=== PATIENT | male | born 2000 | race Caucasian/White ===

== ENCOUNTER → 2022-03-07 | Outpatient (CLI) | payer OTHER ==
--- NOTE | 2022-03-08 03:01 | MR ---
EXAMINATION TYPE: MR foot RT wo con DATE OF EXAM: 03/07/2022 COMPARISON: None HISTORY: Osteomyelitis of great toe of right foot. Multiplanar multi echo imaging of the right foot performed with no contrast. The metatarsals are intact. The toes appear intact. The hindfoot appears intact. Achilles tendon appears normal. Plantar fascia appears normal. There is intact medial and lateral fle xor tendons of the foot. There is some increased fluid signal at the nailbed of the big toe. The bony structures are intact. No evidence of bone edema. No evidence of a fracture. IMPRESSION: No evidence of osteomyelitis. There is increased fluid signal at the nailbed of the big toe that coul d be localized inflammatory process.
== END | disposition home or self-care (01) ==
LOC: RADMRIMAIN 17:10
PROVIDERS: ATTEND Podiatrist Foot & Ankle Surgery
DX: M86.171 Other acute osteomyelitis, right ankle and foot (principal)

== ENCOUNTER 2023-10-03 10:34 | Emergency (ER) | payer OTHER ==
--- NOTE | 2023-10-03 11:06 | ED ---
Syncope HPI - General Chief Complaint: Headache Stated Complaint: Fall Time Seen by Provider: 10/03/23 10:47 Source: patient, family, RN notes reviewed Mode of arrival: ambulatory Limitations: no limitations - History of Present Illness Initial Comments: This is a 23-year-old male who presents to the emergency department for a syncopal episode. States that 2 days ago he got done mowing the lawn. He went inside and took a drink of Sprite. Afterwards he started to feel dizzy and lightheaded. He had a syncopal episode and fell to the ground. Before hitting the ground, he hit the left side of his head on a bookshelf. Family states that he was only unconscious for couple of seconds. He used a push mower but did not overexert himself. He mows the lawn frequently without any problems. He has never had a syncopal episode in the past. Since this event he continues to have a headache in the back and left side of his head. He also injured his left shoulder in the fall and continues to have pain to the left shoulder. This is not painful to move, but only to the touch. Family also states that he is slower to respond than normal and has been somewhat groggy since the fall. Denies any chest pain or shortness of breath. MD Complaint: loss of consciousness - Related Data Home Medications Medication Instructions Recorded Confirmed No Known Home Medications 10/03/23 10/03/23 Allergies Allergy/AdvReac Type Severity Reaction Status Date / Time No Known Allergies Allergy Verified 10/03/23 11:28 Review of Systems ROS Statement: Those systems with pertinent positive or pertinent negative responses have been documented in the HPI. ROS Other: All systems not noted in ROS Statement are negative. Past Medical History Past Medical History: Asthma, Thyroid Disorder Past Surgical History: Orthopedic Surgery Smoking Status: Former smoker Past Alcohol Use History: None Reported Past Drug Use History: None Reported General Exam Limitations: no limitations General appearance: alert, in no apparent distress Head exam: Present: atraumatic, normocephalic, normal inspection Eye exam: Present: normal appearance, PERRL, EOMI. Absent: scleral icterus, conjunctival injection, periorbital swelling Respiratory exam: Present: normal lung sounds bilaterally. Absent: respiratory distress, wheezes, rales, rhonchi, stridor Cardiovascular Exam: Present: regular rate, normal rhythm, normal heart sounds. Absent: systolic murmur, diastolic murmur, rubs, gallop, clicks Neurological exam: Present: alert, oriented X3, CN II-XII intact Psychiatric exam: Present: normal affect, normal mood Skin exam: Present: warm, dry, intact, normal color. Absent: rash Course Vital Signs 10/03/23 10/03/23 10/03/23 10:36 13:52 15:03 Temperature 97.4 F L Pulse Rate 75 70 Respiratory 20 18 Rate Blood Pressure 136/89 132/80 Blood Pressure 135/84 [Right Arm Sitting] Blood Pressure 130/84 [Right Arm Standing] Blood Pressure 136/85 [Right Arm Supine] O2 Sat by Pulse 98 98 Oximetry Medical Decision Making - Medical Decision Making This is a 23 year old male who presents to the emergency department for a syncopal episode. Was pt. sent in by a medical professional or institution? @ -No Did you speak to anyone other than the patient for history? @ -His mother provided the information about him being slower to respond and being unconscious for a couple of seconds. Did you review nursing and triage notes? @ -Yes, and I agree, it is accurate with regards to the patient's symptoms. Were old charts reviewed? @ -No Differential Diagnosis? @ -Differential Syncope: Valvular disease, hypertrophic cardiomyopathy, pulmonary embolism, tamponade, tachycardia, bradycardia, NV, hypovolemia, hemorrhage, dissection, anemia, intracranial hemorrhage, seizure, hypoglycemia, carbon monoxide poisoning, this is not meant to be an all-inclusive list. EKG interpreted by me (3pts min.)? @ -EKG interpreted by me demonstrating the following: Sinus rhythm. Ventricular rate 70 bpm, AZ interval 165 ms, QRS duration 102 ms, QTc 387 ms. X-rays interpreted by me (1pt min.)? @ -Chest x-ray obtained, my interpretation identifies no localized consolidations or infiltrates. X-ray of the left shoulder obtained. My interpretation identifies no acute fractures. CT interpreted by me (1pt min.)? @ -CT scan of the brain obtained. My interpretation identifies no evidence of an acute intracranial hemorrhage. U/S interpreted by me (1pt. min.)? @ -Not obtained What testing was considered but not performed? (CT, X-rays, U/S, labs)? Why? @ -None What meds were considered but not given? Why? @ -None Did you discuss the management of the patient with other professionals? @ -No Did you reconcile home meds? @ -No Was smoking cessation discussed for >3mins.? @ -No Was critical care preformed (if so, how long)? @ -No Were there social determinants of health that impacted care today? How? (Homelessness, low income, unemployed, alcoholism, drug addiction, tr ansportation, low edu. Level, literacy, decrease access to med. care, half-way, rehab)? @ -No Was there de-escalation of care discussed even if they declined? (Discuss DNR or withdrawal of care, Hospice)? @ -No What co-morbidities impacted this encounter? (DM, HTN, Smoking, COPD, CAD, Cancer, CVA, Hep., AIDS, mental health diagnosis, sleep apnea, morbid obesity)? @ -Hypothyroidism Was patient admitted / discharged? @ -Discharged. Lab work demonstrates a mildly elevated TSH consistent with his history of hypothyroidism. CT scan of the brain obtained revealing no acute process. X-ray of the chest and left shoulder obtained also revealing no acute findings. Orthostatics obtained and also found to be negative. Patient treated with IV fluids and Toradol with improvement in symptoms. Discussed the poss ibility of a concussion given his symptoms since the head injury. Advised he follow-up with his primary care provider regarding the syncopal episode and the symptoms in the event additional testing is needed. Advised ibuprofen and Tylenol as needed for any additional headaches. Undiagnosed new problem with uncertain prognosis? @ -None Drug Therapy requiring intensive monitoring for toxicity (Heparin, Nitro, Insulin, Cardizem)? @ -None Were any procedures done? @ -None Diagnosis/symptom? @ -Syncope, head injury Acute, or Chronic, or Acute on Chronic? @ -Acute Uncomplicated (without systemic symptoms) or Complicated (systemic symptoms)? @ -Uncomplicated Side effects of treatment? @ -None Exacerbation, Progression, or Severe Exacerbation] @ -Not applicable Poses a threat to life or bodily function? @ -Unlikely, however this will depend on the cause Return precautions reviewed in depth, the patient is instructed to return to the emergency department with any new, worsening, or concerning symptoms. Patient verbalized understanding. This case was discussed in detail with the attending ED physician, Dr. Quiles. Presentation, findings, and treatment plan discussed in detail as well. - Lab Data Result diagrams: 10/03/23 11:30 10/03/23 11:30 Lab Results 10/03/23 10/03/23 10/03/23 Range/Units 11:30 11:30 11:30 WBC 6.0 (3.8-10.6) k/uL RBC 5.28 (4.30-5.90) m/uL Hgb 14.4 (13.0-17.5) gm/dL Hct 44.2 (39.0-53.0) % MCV 83.7 (80.0-100.0) fL MCH 27.2 (25.0-35.0) pg MCHC 32.5 (31.0-37.0) g/dL RDW 13.5 (11.5-15.5) % Plt Count 270 (150-450) k/uL MPV 7.1 Neutrophils % 67 % Lymphocytes % 23 % Monocytes % 6 % Eosinophils % 2 % Basophils % 1 % Neutrophils # 4.1 (1.3-7.7) k/uL Lymphocytes # 1.4 (1.0-4.8) k/uL Monocytes # 0.4 (0-1.0) k/uL Eosinophils # 0.1 (0-0.7) k/uL Basophils # 0.0 (0-0.2) k/uL PT 10.8 (10.0-12.5) sec INR 1.0 (<1.2) APTT 28.1 (22.0-30.0) sec Sodium 139 (137-145) mmol/L Potassium 4.0 (3.5-5.1) mmol/L Chloride 105 (98-107) mmol/L Carbon Dioxide 23 (22-30) mmol/L Anion Gap 11 mmol/L BUN 7 L (9-20) mg/dL Creatinine 0.73 (0.66-1.25) mg/dL Est GFR (CKD-EPI)AfAm >90 (>60 ml/min/1.73 sqM) Est GFR (CKD-EPI)NonAf >90 (>60 ml/min/1.73 sqM) Glucose 95 (74-99) mg/dL Calcium 9.3 (8.4-10.2) mg/dL Magnesium 2.0 (1.6-2.3) mg/dL Total Bilirubin 0.5 (0.2-1.3) mg/dL AST 21 (17-59) U/L ALT 27 (4-49) U/L Alkaline Phosphatase 72 (38-126) U/L Troponin I (0.000-0.034) ng/mL Total Protein 7.9 (6.3-8.2) g/dL Albumin 4.5 (3.5-5.0) g/dL TSH 5.230 H (0.465-4.680) mIU/L Free T4 0.82 (0.78-2.19) ng/dL 10/03/23 Range/Units 11:30 WBC (3.8-10.6) k/uL RBC (4.30-5.90) m/uL Hgb (13.0-17.5) gm/dL Hct (39.0-53.0) % MCV (80.0-100.0) fL MCH (25.0-35.0) pg MCHC (31.0-37.0) g/dL RDW (11.5-15.5) % Plt Count (150-450) k/uL MPV Neutrophils % % Lymphocytes % % Monocytes % % Eosinophils % % Basophils % % Neutrophils # (1.3-7.7) k/uL Lymphocytes # (1.0-4.8) k/uL Monocytes # (0-1.0) k/uL Eosinophils # (0-0.7) k/uL Basophils # (0-0.2) k/uL PT (10.0-12.5) sec INR (<1.2) APTT (22.0-30.0) sec Sodium (137-145) mmol/L Potassium (3.5-5.1) mmol/L Chloride (98-107) mmol/L Carbon Dioxide (22-30) mmol/L Anion Gap mmol/L BUN (9-20) mg/dL Creatinine (0.66-1.25) mg/dL Est GFR (CKD-EPI)AfAm (>60 ml/min/1.73 sqM) Est GFR (CKD-EPI)NonAf (>60 ml/min/1.73 sqM) Glucose (74-99) mg/dL Calcium (8.4-10.2) mg/dL Magnesium (1.6-2.3) mg/dL Total Bilirubin (0.2-1.3) mg/dL AST (17-59) U/L ALT (4-49) U/L Alkaline Phosphatase (38-126) U/L Troponin I <0.012 (0.000-0.034) ng/mL Total Protein (6.3-8.2) g/dL Albumin (3.5-5.0) g/dL TSH (0.465-4.680) mIU/L Free T4 (0.78-2.19) ng/dL - Radiology Data Radiology results: report reviewed, image reviewed Disposition Clinical Impression: Syncope, Head injury Disposition: HOME SELF-CARE Instructions (If sedation given, give patient instructions): Syncope (ED), Head Injury (ED), Acute Headache (ED) Additional Instructions: Return to the emergency department with any new, worsening, or concerning symptoms. Alternate with ibuprofen and Tylenol as needed for any additional h eadaches. Follow up with your primary care provider in 1-2 days. Is patient prescribed a controlled substance at d/c from ED?: No Referrals: Zbigniew Dinero [Primary Care Provider] - 1-2 days Time of Disposition: 13:48
--- NOTE | 2023-10-03 11:08 | XR ---
EXAMINATION TYPE: XR chest 2V DATE OF EXAM: 10/03/2023 COMPARISON: NONE HISTORY: Syncope TECHNIQUE: Frontal and lateral views of the chest are obtained. FINDINGS: There is no airspace/consolidative opacity. There is no pleural effusion or pneumothorax. Heart and pulmonary vasculature are normal. The osseous structures are intact IMPRESSION: No acute cardiopulmonary process.
--- NOTE | 2023-10-03 11:09 | XR ---
Left shoulder. HISTORY: Pain following fall. COMPARISON: None. TECHNIQUE: 3 views of left shoulder were obtained. FINDINGS: There is no fracture, dislocation, intraosseous, intra-articular or soft tissue abnormality. IMPRESSION: No evidence of acute trauma. No significant abnormality seen.
[2023-10-03 11:10] VITALS: TEMP 97.4
--- NOTE | 2023-10-03 11:39 | CT ---
EXAMINATION TYPE: CT brain wo con DATE OF EXAM: 10/03/2023 COMPARISON: None HISTORY: syncope, hit left side of head, no LOC CT DLP: 1113.4 mGycm. Automated Exposure Control for Dose Reduction was Utilized. TECHNIQUE: CT scan of the head is performed without contrast. Findings: The ventricles, basal cisterns and sulci of the convexities within normal limits and there is no mass effect or shift in midline structures. No abnormal density is seen throughout the brain parenchyma and there is no acute intra or extra-axia l hemorrhage. The posterior fossa is grossly normal. Intraorbital contents appear normal and symmetric There are mild chronic inflammatory changes in the right maxillary sinus. The mastoid air cells are w ell aerated. The calvarium is intact. IMPRESSION: No acute bleed or mass effect. Calvarium is intact.
[2023-10-03] MEDS: SODIUM CHLORIDE 0.9% 1,000 ML IV STA (11:44)
[2023-10-03] MEDS: KETOROLAC 15 MG/ML 1 ML VIAL IVP STA (11:44)
[2023-10-03 11:56] LABS: Basophils % (A) 1 %; Eosinophils # (A) 0.1 k/uL (0-0.7); Eosinophils % (A) 2 %; HCT 44.2 % (39.0-53.0); HGB 14.4 gm/dL (13.0-17.5); Lymphocytes # (A) 1.4 k/uL (1.0-4.8); Lymphocytes % (A) 23 %; MCH 27.2 pg (25.0-35.0); MCHC 32.5 g/dL (31.0-37.0); MCV 83.7 fL (80.0-100.0); Mean Platelet Volume 7.1; Monocytes # (A) 0.4 k/uL (0-1.0); Monocytes % (A) 6 %; Neutrophils # (A) 4.1 k/uL (1.3-7.7); Neutrophils % (A) 67 %; Platelet Count 270 k/uL (150-450); RBC 5.28 m/uL (4.30-5.90); RDW 13.5 % (11.5-15.5)
[2023-10-03 12:05] LABS: Partial Thromboplastin Time 28.1 sec (22.0-30.0); Prothrombin Time 10.8 sec (10.0-12.5)
[2023-10-03 12:16] LABS: ALT 27 U/L (4-49); AST 21 U/L (17-59); African American GFR (CKD) >90 (>60 ml/min/1.73 sqM); Albumin 4.5 g/dL (3.5-5.0); Alkaline Phosphatase 72 U/L (38-126); Anion Gap 11 mmol/L; Blood Urea Nitrogen 7 mg/dL (9-20); Calcium 9.3 mg/dL (8.4-10.2); Carbon Dioxide 23 mmol/L (22-30); Chloride 105 mmol/L (98-107); Glucose 95 mg/dL (74-99); Non-African American GFR(CKD) >90 (>60 ml/min/1.73 sqM); Sodium 139 mmol/L (137-145); Total Bilirubin 0.5 mg/dL (0.2-1.3); Total Protein 7.9 g/dL (6.3-8.2)
[2023-10-03 13:13] LABS: T4, Free (Free Thyroxine) 0.82 ng/dL (0.78-2.19)
[2023-10-03 15:07] VITALS: BP 132/80; PULSE 70; RESP 18
== END 2023-10-03 15:06 | disposition home or self-care (01) ==
LOC: EC 10:34
DX: S09.90XA Unspecified injury of head, initial encounter (principal); Z87.891 Personal history of nicotine dependence; W18.39XA Other fall on same level, initial encounter
CPT/HCPCS: 96374; 96361; 36415; 93005; 84439; 80053; 84443; 83735; 84484; 85025; 85610; 85730; 73030; 71046; 70450; 99285; J1885

== ENCOUNTER 2024-01-31 09:21 | Emergency (ER) | payer OTHER ==
[2024-01-31 09:24] VITALS: RESP 18
--- NOTE | 2024-01-31 10:01 | ED ---
ENT HPI - General Chief complaint: ENT Stated complaint: Sore Throat Time Seen by Provider: 01/31/24 09:59 Source: patient, RN notes reviewed Mode of arrival: ambulatory Limitations: no limitations - History of Present Illness Initial comments: 23-year-old male presented to the ER with a chief complaint of sore throat. He states he noticed his sore throat on Thursday making it difficult and painful to swallow. He reports low-grade fevers. He denies any cough or congestion. He has taken kjyn-bma-kzrmroe Mucinex cough drops with minor relief. Denies any shortness of breath, wheezing, chest pain, abdominal pain, constipation/diarrhea or peripheral edema. Patient has no significant past medical history. - Related Data Previous Rx's Medication Instructions Recorded Amoxicillin 500 mg PO Q12H #20 capsule 01/31/24 Allergies Allergy/AdvReac Type Severity Reaction Status Date / Time No Known Allergies Allergy Verified 01/31/24 09:24 Review of Systems ROS Statement: Those systems with pertinent positive or pertinent negative responses have been documented in the HPI. ROS Other: All systems not noted in ROS Statement are negative. Past Medical History Past Medical History: Asthma, Thyroid Disorder Past Surgical History: Orthopedic Surgery Past Psychological History: No Psychological Hx Reported Smoking Status: Former smoker Past Alcohol Use History: None Reported Past Drug Use History: None Reported General Exam Limitations: no limitations General appearance: alert, in no apparent distress Eye exam: Present: normal appearance, PERRL, EOMI. Absent: scleral icterus, conjunctival injection, periorbital swelling ENT exam: Present: normal exam, mucous membranes moist, TM's normal bilaterally, other (Erythematous edematous bilateral tonsils with minimal white exudates) Neck exam: Present: normal inspection. Absent: tenderness, meningismus, lymphadenopathy Respiratory exam: Present: normal lung sounds bilaterally. Absent: respiratory distress, wheezes, rales, rhonchi, stridor Cardiovascular Exam: Present: regular rate, normal rhythm, normal heart sounds. Absent: systolic murmur, diastolic murmur, rubs, gallop, clicks GI/Abdominal exam: Present: soft, normal bowel sounds. Absent: distended, t enderness, guarding, rebound, rigid Extremities exam: Present: normal inspection, full ROM, normal capillary refill. Absent: tenderness, pedal edema, joint swelling, calf tenderness Neurological exam: Present: alert, oriented X3, CN II-XII intact Skin exam: Present: warm, dry, intact, normal color. Absent: rash Course Vital Signs 01/31/24 01/31/24 09:22 11:15 Temperature 98.0 F 98.1 F Pulse Rate 103 H 96 Respiratory 18 18 Rate Blood Pressure 138/86 127/82 O2 Sat by Pulse 99 98 Oximetry Medical Decision Making - Medical Decision Making Was pt. sent in by a medical professional or institution (MARGARET Talavera, ROOFER ASSISTANT, urgent care, hospital, or group home...) When possible be specific @ -No Did you speak to anyone other than the patient for history (EMS, parent, family, police, friend...)? What history was obtained from this source @ -No Did you review nursing and triage notes (agree or disagree)? Why? @ -I reviewed and agree with nursing and triage notes Were old charts reviewed (outside hosp., previous admission, EMS record, old EKG, old radiological studies, urgent care reports/EKG's, group home records)? Report findings @ -No old charts were reviewed Differential Diagnosis (chest pain, altered mental status, abdominal pain women, abdominal pain men, vaginal bleeding, weakness, fever, dyspnea, syncope, headache, dizziness, GI bleed, back pain, seizure, CVA, palpatations, mental h ealth, musculoskeletal)? @ -COVID, RSV, influenza, viral sinusitis, pneumonia, strep pharyngitis,... this list is not meant to be all-inclusive EKG interpreted by me (3pts min.). @ -None X-rays interpreted by me (1pt min.). @ -None done CT interpreted by me (1pt min.). @ -None done U/S interpreted by me (1pt. min.). @ -None done What testing was considered but not performed or refused? (CT, X-rays, U/S, labs)? Why? @ -None What meds were considered but not given or refused? Why? @ -None Did you discuss the management of the patient with other professionals (professionals i.e. MARGARET Talavera, ROOFER ASSISTANT, lab, RT, psych nurse, social media senior associate, lathe spotter, teacher, contracts officer, pillowcase folder)? Give summary @ -No Was smoking cessation discussed for >3mins.? @ -No Was critical care preformed (if so, how long)? @ -No Were there social determinants of health that impacted care today? How? (Homelessness, low income, unemployed, alcoholism, drug addiction, transportation, low edu. Level, literacy, decrease access to med. care, assisted, rehab)? @ -No Was there de-escalation of care discussed even if they declined (Discuss DNR or withdrawal of care, Hospice)? DNR status @ -No What co-morbidities impacted this encounter? (DM, HTN, Smoking, COPD, CAD, Cancer, CVA, ARF, Chemo, Hep., AIDS, mental health diagnosis, sleep apnea, morbid obesity)? @ -None Was patient admitted / discharged? Hospital course, mention meds given and route, prescriptions, significant lab abnormalities, going to OR and other pertinent info. @ -Discharge. 23-year-old male presented to ER with chief complaint of sore throat. History and physical exam completed. Vitals within normal limits. Patient in no signs of acute distress and nontoxic-appearing. Patient does appear ill. Bilateral tonsils edematous with white exudates present concerning of strep pharyngitis. Viral swabs and strep negative. Due to physical exam findings patient will be started on amoxicillin. Patient given p.o. Tylenol for symptom control in the ER. Upon reevaluation, patient resting comfortably in exam room in no signs of acute distress. Patient reporting mild improvement symptoms. Results discussed with patient, all questions answered. Advise close follow-up with PCP. Return parameters discussed. Patient discharged stable condition. Case discussed with ED attending, Dr. López. Undiagnosed new problem with uncertain prognosis? @ -No Drug Therapy requiring intensive monitoring for toxicity (Heparin, Nitro, Insulin, Cardizem)? @ -No Were any procedures done? @ -No Diagnosis/symptom? @ -Strep pharyngitis Acute, or Chronic, or Acute on Chronic? @ -Acute Uncomplicated (without systemic symptoms) or Complicated (systemic symptoms)? @ -Uncomplicated Side effects of treatment? @ -No Exacerbation, Progression, or Severe Exacerbation? @ -No Poses a threat to life or bodily function? How? (Chest pain, [place], AL, pneumonia, PE, COPD, DKA, ARF, appy, cholecystitis, CVA, Diverticulitis, Homicidal, Suicidal, threat to staff... and all critical care pts) @ -No - Lab Data Lab Results 01/31/24 01/31/24 Range/Units 09:56 09:56 Influenza Type A (PCR) Not Detected (Not Detectd) Influenza Type B (PCR) Not Detected (Not Detectd) RSV (PCR) Not Detected (Not Detectd) SARS-CoV-2 (PCR) Not Detected (Not Detectd) Group A Strep (PCR) NOT DETECTED (Not Detectd) Disposition Clinical Impression: Strep pharyngitis Disposition: HOME SELF-CARE Condition: Stable Instructions (If sedation given, give patient instructions): Strep Throat (ED) Additional Instructions: Course of antibiotics. Follow-up with PCP. You may take [id number]-[id number] Tylenol and Motrin for your fever and symptom control. Return to the ER for any new or worsening concerns. Prescriptions: Amoxicillin 500 mg PO Q12H #20 capsule Is patient prescribed a controlled substance at d/c from ED?: No Referrals: Zbigniew Dinero [Primary Care Provider] - 1-2 days Time of Disposition: 11:11
[2024-01-31] MEDS: ACETAMINOPHEN TAB 325 MG TAB PO STA (10:06)
[2024-01-31 11:17] VITALS: BP 127/82; PULSE 96; TEMP 98.1
== END 2024-01-31 11:17 | disposition home or self-care (01) ==
LOC: EC 09:21
DX: J02.9 Acute pharyngitis, unspecified (principal); Z87.891 Personal history of nicotine dependence
CPT/HCPCS: 87636; 87651; 99283